=== PATIENT | female | born 1975 | race Caucasian/White ===

== ENCOUNTER 2019-12-03 10:14 | Inpatient (IN) | payer OTHER ==
[2019-12-03] MEDS ORDERED: KETOROLAC 15 MG/ML 1 ML VIAL IVP STA (10:37)
--- NOTE | 2019-12-03 10:51 | ED ---
Extremity Problem HPI - General Chief complaint: Extremity Problem,Nontraumatic Stated complaint: LEG PAIN Time Seen by Provider: 12/03/19 10:29 Source: patient, RN notes reviewed Mode of arrival: wheelchair Limitations: no limitations - History of Present Illness Initial comments: This a 44-year-old female presents emergency Department chief complaint left groin pain and swelling. 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 She states she had multiple infections of this area and which she just had her sutures removed last week and flew back here. She states she currently is seen in [place] but she flies back and forth from here. Patient states he does not have any local physician. Patient states that she noticed some increasing pain and swelling to the lymph nodes in her thigh that were biopsied. Patient states that has become more painful she has been taken Motrin no known fever. Patient called physician who recommended for the hospital infection versus blood clot. She denies any chest pain or shortness of breath. - Related Data Home Medications Medication Instructions Recorded Confirmed Gabapentin [Neurontin] 100 mg PO BID 12/03/19 12/03/19 Ibuprofen [Motrin Ib] 800 mg PO DAILY PRN 12/03/19 12/03/19 Allergies Allergy/AdvReac Type Severity Reaction Status Date / Time Penicillins Allergy Dyspnea Verified 12/03/19 10:23 Review of Systems ROS Statement: Those systems with pertinent positive or pertinent negative responses have been documented in the HPI. ROS Other: All systems not noted in ROS Statement are negative. Past Medical History Additional Past Medical History / Comment(s): Melanoma History of Any Multi-Drug Resistant Organisms: None Reported Additional Past Surgical History / Comment(s): Recent surgery to remove melanoma left calf and removal lymph nodes to left groin at [facility]. Past Psychological History: No Psychological Hx Reported Smoking Status: Current every day smoker Past Alcohol Use History: None Reported Past Drug Use History: None Reported General Exam Limitations: no limitations General appearance: alert, in no apparent distress Head exam: Present: atraumatic, normocephalic, normal inspection Eye exam: Present: normal appearance, PERRL, EOMI. Absent: scleral icterus, conjunctival injection, periorbital swelling Neck exam: Present: normal inspection. Absent: tenderness, meningismus, lymphadenopathy Respiratory exam: Present: normal lung sounds bilaterally. Absent: respiratory distress, wheezes, rales, rhonchi, stridor Cardiovascular Exam: Present: regular rate, normal rhythm, normal heart sounds. Absent: systolic murmur, diastolic murmur, rubs, gallop, clicks Extremities exam: Present: other (There is a healing wound noted on the left calf region, pulses are equal bilaterally, left groin there is a large indurated area with erythema, moderate tenderness with palpation just distal to her healed incision site neurovascular intact) Course Vital Signs 12/03/19 10:15 Temperature 97.6 F Pulse Rate 85 Respiratory 18 Rate Blood Pressure 140/87 O2 Sat by Pulse 100 Oximetry Medical Decision Making - Medical Decision Making 44-year-old female presented for left groin swelling. Ultrasound obtained no strong evidence for DVT. There there is likely an large abscess. Patient was started on broad-spectrum antibiotics patient will be admitted to medicine with consult surgery. - Lab Data Result diagrams: 12/03/19 10:54 12/03/19 10:54 Lab Results 12/03/19 12/03/19 12/03/19 Range/Units 10:54 10:54 10:54 WBC 11.2 H (3.8-10.6) k/uL RBC 4.07 (3.80-5.40) m/uL Hgb 11.9 (11.4-16.0) gm/dL Hct 36.0 (34.0-46.0) % MCV 88.4 (80.0-100.0) fL MCH 29.3 (25.0-35.0) pg MCHC 33.1 (31.0-37.0) g/dL RDW 12.4 (11.5-15.5) % Plt Count 329 (150-450) k/uL Neutrophils % 81 % Lymphocytes % 10 % Monocytes % 5 % Eosinophils % 3 % Basophils % 1 % Neutrophils # 9.1 H (1.3-7.7) k/uL Lymphocytes # 1.1 (1.0-4.8) k/uL Monocytes # 0.5 (0-1.0) k/uL Eosinophils # 0.4 (0-0.7) k/uL Basophils # 0.1 (0-0.2) k/uL PT 10.0 (9.0-12.0) sec INR 1.0 (<1.2) APTT 27.0 (22.0-30.0) sec Sodium 138 (137-145) mmol/L Potassium 3.3 L (3.5-5.1) mmol/L Chloride 102 (98-107) mmol/L Carbon Dioxide 28 (22-30) mmol/L Anion Gap 8 mmol/L BUN 8 (7-17) mg/dL Creatinine 0.62 (0.52-1.04) mg/dL Est GFR (CKD-EPI)AfAm >90 (>60 ml/min/1.73 sqM) Est GFR (CKD-EPI)NonAf >90 (>60 ml/min/1.73 sqM) Glucose 88 (74-99) mg/dL Plasma Lactic Acid U[place] (0.7-2.0) mmol/L Calcium 8.7 (8.4-10.2) mg/dL Total Bilirubin 0.9 (0.2-1.3) mg/dL AST 25 (14-36) U/L ALT 28 (4-34) U/L Alkaline Phosphatase 88 (38-126) U/L Total Protein 6.9 (6.3-8.2) g/dL Albumin 4.1 (3.5-5.0) g/dL Urine Color Urine Appearance (Clear) Urine pH (5.0-8.0) Ur Specific [place] (1.001-1.035) Urine Protein (Negative) Urine Glucose (UA) (Negative) Urine Ketones (Negative) Urine Blood (Negative) Urine Nitrite (Negative) Urine Bilirubin (Negative) Urine Urobilinogen (<2.0) mg/dL Ur Leukocyte Esterase (Negative) Urine RBC (0-5) /hpf Urine WBC (0-5) /hpf Ur Squamous Epith Cells (0-4) /hpf Urine Bacteria (None) /hpf Urine Mucus (None) /hpf 12/03/19 12/03/19 Range/Units 10:54 10:54 WBC (3.8-10.6) k/uL RBC (3.80-5.40) m/uL Hgb (11.4-16.0) gm/dL Hct (34.0-46.0) % MCV (80.0-100.0) fL MCH (25.0-35.0) pg MCHC (31.0-37.0) g/dL RDW (11.5-15.5) % Plt Count (150-450) k/uL Neutrophils % % Lymphocytes % % Monocytes % % Eosinophils % % Basophils % % Neutrophils # (1.3-7.7) k/uL Lymphocytes # (1.0-4.8) k/uL Monocytes # (0-1.0) k/uL Eosinophils # (0-0.7) k/uL Basophils # (0-0.2) k/uL PT (9.0-12.0) sec INR (<1.2) APTT (22.0-30.0) sec Sodium (137-145) mmol/L Potassium (3.5-5.1) mmol/L Chloride (98-107) mmol/L Carbon Dioxide (22-30) mmol/L Anion Gap mmol/L BUN (7-17) mg/dL Creatinine (0.52-1.04) mg/dL Est GFR (CKD-EPI)AfAm (>60 ml/min/1.73 sqM) Est GFR (CKD-EPI)NonAf (>60 ml/min/1.73 sqM) Glucose (74-99) mg/dL Plasma Lactic Acid [place] 0.9 (0.7-2.0) mmol/L Calcium (8.4-10.2) mg/dL Total Bilirubin (0.2-1.3) mg/dL AST (14-36) U/L ALT (4-34) U/L Alkaline Phosphatase (38-126) U/L Total Protein (6.3-8.2) g/dL Albumin (3.5-5.0) g/dL Urine Color Yellow Urine Appearance Cloudy H (Clear) Urine pH 6.0 (5.0-8.0) Ur Specific [place] 1.016 (1.001-1.035) Urine Protein Negative (Negative) Urine Glucose (UA) Negative (Negative) Urine Ketones Negative (Negative) Urine Blood Trace H (Negative) Urine Nitrite Negative (Negative) Urine Bilirubin Negative (Negative) Urine Urobilinogen <2.0 (<2.0) mg/dL Ur Leukocyte Esterase Large H (Negative) Urine RBC 5 (0-5) /hpf Urine WBC 108 H (0-5) /hpf Ur Squamous Epith Cells <1 (0-4) /hpf Urine Bacteria Rare H (None) /hpf Urine Mucus Rare H (None) /hpf Disposition Clinical Impression: Abscess of left groin Disposition: ADMITTED IP TO THIS HOSP Condition: Fair Referrals: None,Stated [Primary Care Provider] - 1-2 days
[2019-12-03 11:20] LABS: ALT 28 U/L (4-34); AST 25 U/L (14-36); African American GFR (CKD) >90 (>60 ml/min/1.73 sqM); Albumin 4.1 g/dL (3.5-5.0); Alkaline Phosphatase 88 U/L (38-126); Anion Gap 8 mmol/L; Blood Urea Nitrogen 8 mg/dL (7-17); Calcium 8.7 mg/dL (8.4-10.2); Carbon Dioxide 28 mmol/L (22-30); Chloride 102 mmol/L (98-107); Glucose 88 mg/dL (74-99); Non-African American GFR(CKD) >90 (>60 ml/min/1.73 sqM); Potassium 3.3 mmol/L (3.5-5.1); Sodium 138 mmol/L (137-145); Total Bilirubin 0.9 mg/dL (0.2-1.3); Total Protein 6.9 g/dL (6.3-8.2)
[2019-12-03 11:24] LABS: Appearance,Urine Cloudy (Clear); Bacteria,Urine Rare /hpf; Bilirubin,Urine Negative (Negative); Blood,Urine Trace (Negative); Color,Urine Yellow; Glucose,Urine (UA) Negative (Negative); Ketones,Urine Negative (Negative); Leukocyte Esterase,Urine Large (Negative); Mucus,Urine Rare /hpf; Nitrite,Urine Negative (Negative); Protein,Urine Negative (Negative); RBC,Urine 5 /hpf (0-5); Specific Gravity,Urine 1.016 (1.001-1.035); Squamous Epithelial Cell,Urine <1 /hpf (0-4); Urobilinogen,Urine <2.0 mg/dL (<2.0); WBC,Urine 108 /hpf (0-5)
[2019-12-03 11:34] LABS: Basophils # (A) 0.1 k/uL (0-0.2); Basophils % (A) 1 %; Eosinophils # (A) 0.4 k/uL (0-0.7); Eosinophils % (A) 3 %; HGB 11.9 gm/dL (11.4-16.0); Lymphocytes # (A) 1.1 k/uL (1.0-4.8); Lymphocytes % (A) 10 %; MCH 29.3 pg (25.0-35.0); MCHC 33.1 g/dL (31.0-37.0); MCV 88.4 fL (80.0-100.0); Mean Platelet Volume 8.5; Monocytes # (A) 0.5 k/uL (0-1.0); Monocytes % (A) 5 %; Neutrophils # (A) 9.1 k/uL (1.3-7.7); Neutrophils % (A) 81 %; Platelet Count 329 k/uL (150-450); RBC 4.07 m/uL (3.80-5.40); RDW 12.4 % (11.5-15.5); WBC 11.2 k/uL (3.8-10.6)
--- NOTE | 2019-12-03 11:50 | US ---
EXAMINATION TYPE: US groin LT DATE OF EXAM: 12/03/2019 COMPARISON: NONE CLINICAL HISTORY: infection s/p biopsy. hx lymph nodes removed on Oct 01 due to Melanoma on left leg. Redness and hard palpable in left groin. Complex fluid collection visualized at area of concern = 4.9 x 3.4 x 2.5 cm. IMPRESSION: 1. Limited ultrasound of the left groin demonstrates a large complex lesion measuring 4.9 cm. Differe ntial diagnosis would include an abscess. Hematoma or a mass not excluded. Correlate clinically.
--- NOTE | 2019-12-03 11:51 | US ---
EXAMINATION TYPE: US venous doppler duplex LE LT DATE OF EXAM: 12/03/2019 11:41 AM COMPARISON: US CLINICAL HISTORY: pain . Hard palpable and redness seen in left groin. R/O DVT. SIDE PERFORMED: Left TECHNIQUE: The lower extremity deep venous system is examined utilizing real time linear array sonog genevieve with graded compression, doppler sonography and color-flow sonography. VESSELS IMAGED: External Iliac Vein (EIV) Common Femoral Vein Deep Femoral Vein Greater Saphenous Vein * Femoral Vein Popliteal Vein Small Saphenous Vein * Proximal Calf Veins (* superficial vessels) Left Leg: Negative for DVT. Compressions deferred for Fem V proximal and mid due to patient pain to lerance and location of hard palpable. IMPRESSION: Exam limited due to lack of compressions. No diagnostic evidence of DVT as visualized.
[2019-12-03] MEDS ORDERED: VANCOMYCIN IV PER PHARMACY 1 EACH MISC MISCELLANE PRN ×2 (12:28→14:18)
[2019-12-03] MEDS ORDERED: ONDANSETRON 4 MG/2 ML VIAL IVP PRN (12:30)
[2019-12-03] MEDS ORDERED: NALOXONE 0.4 MG/ML 1 ML VIAL IV PRN (12:30)
[2019-12-03] MEDS ORDERED: KETOROLAC 15 MG/ML 1 ML VIAL IVP PRN (12:30)
[2019-12-03] MEDS ORDERED: VANCOMYCIN 1,750 MG in SODIUM CHLORIDE 0.9% 500 ML 500 ML IVPB ONE (13:00)
[2019-12-03] MEDS: SODIUM CHLORIDE 0.9% 1,000 ML IV SCH (13:06)
[2019-12-03] MEDS ORDERED: ACETAMINOPHEN TAB 325 MG TAB PO PRN (14:18)
--- NOTE | 2019-12-03 14:25 | P.HPIM ---
History of Present Illness H&P Date: 12/03/19 Chief Complaint: Left thigh redness and pain This is a 44-year-old female with past medical history significant for recently diagnosed malignant melanoma of the left lower extremity status post surgical excision [place]. Patient said that since then she had problems with the wound healing at the excision site in the left lower extremity posterior calf area. She had antibiotic that eventually had her sutures removed few days ago. She said that on Tuesday she noted an area of swelling and redness in the left groin/upper thigh area just below the lymph node biopsy incision area. This was getting more painful. She denies any fevers or chills. She did not the area of erythema on Tuesday but today noted that the redness expanded significantly and was having more pain and decided to come to the emergency room. In the ER, ultrasound showed the 5 cm fluid collection suggestive for an underlying abscess. Patient was given IV ceftriaxone and vancomycin is currently admitted to the hospital for further management. Review of Systems Review of system: 14 points review of systems were obtained and were negative except to what were mentioned in the HPI. Past Medical History Additional Past Medical History / Comment(s): Melanoma History of Any Multi-Drug Resistant Organisms: None Reported Additional Past Surgical History / Comment(s): Recent surgery to remove melanoma left calf and removal lymph nodes to left groin at [facility]. Past Psychological History: No Psychological Hx Reported Smoking Status: Current every day smoker Past Alcohol Use History: None Reported Past Drug Use History: None Reported Medications and Allergies Home Medications Medication Instructions Recorded Confirmed Type Gabapentin [Neurontin] 100 mg PO BID 12/03/19 12/03/19 History Ibuprofen [Motrin Ib] 800 mg PO DAILY PRN 12/03/19 12/03/19 History Allergies Allergy/AdvReac Type Severity Reaction Status Date / Time Penicillins Allergy Dyspnea Verified 12/03/19 10:23 Physical Exam Vitals: Vital Signs Temp Pulse Resp BP Pulse Ox 12/03/19 13:08 98.2 F 78 18 135/74 100 12/03/19 10:15 97.6 F 85 18 140/87 100 Intake and Output 12/02/19 12/03/19 12/03/19 22:59 06:59 14:59 Other: Weight 101.151 kg General: The patient is awake and alert, in no distress Eye: there is normal conjunctiva bilaterally. Neck: The neck is supple, there is no JVD. Cardiovascular: Normal S1-S2, no S3-S4, no murmurs. Respiratory: Lungs clear to auscultation bilaterally Gastrointestinal: Abdomen is soft, nontender Musculoskeletal: There is no pedal edema. Left thigh significantly swollen compared to the right. There is an area of erythema extending from the left groin down to the mid thigh area. There is an area of hardening and fluctuation measuring approximately 4 cm Neurological:. Speech is normal. Skin: Skin is warm and dry Results CBC & Chem 7: 12/03/19 10:54 12/03/19 10:54 Labs: Abnormal Lab Results - Last 24 Hours (Table) 12/03/19 12/03/19 12/03/19 Range/Units 10:54 10:54 10:54 WBC 11.2 H (3.8-10.6) k/uL Neutrophils # 9.1 H (1.3-7.7) k/uL Potassium 3.3 L (3.5-5.1) mmol/L Urine Appearance Cloudy H (Clear) Urine Blood Trace H (Negative) Ur Leukocyte Esterase Large H (Negative) Urine WBC 108 H (0-5) /hpf Urine Bacteria Rare H (None) /hpf Urine Mucus Rare H (None) /hpf Assessment and Plan Assessment: 1. Left groin/upper thigh cellulitis with abscess, we will continue with IV vancomycin. Gen. surgery consulted for I&D. Mallard for pain as needed 2. Recently diagnosed malignant melanoma on the left calf status post excision/removal, wound appeared eating well. I will consult wound care 3. Leukocytosis with no other SIRS criteria. We'll continue IV fluid hydration and antibiotic. Blood culture sent and pending. 4. DVT prophylaxis with subcu heparin The patient is admitted with an anticipated greater than 2 midnight stay for ev aluation of the medical problems noted above Discussed with: Patient and nursing staff Anticipated discharge date: To be determined based on clinical course Anticipated discharge place: home A total of 45 minutes was spent on the care of this complex patient more than 50% of the time was spent in counseling and care coordination.
[2019-12-03] MEDS ORDERED: INFLUENZA VACCINE (6 MOS+) 60 MCG/0.5 ML SYRINGE IM ONE (14:29)
[2019-12-03] MEDS: HYDROcodone/APAP 5-325MG 1 EACH TAB PO PRN (15:55)
--- NOTE | 2019-12-03 16:32 | P.OP ---
Date of Procedure: 12/03/19 Preoperative Diagnosis: Left thigh abscess Postoperative Diagnosis: Left thigh abscess Procedure(s) Performed: range of left thigh abscess Anesthesia: MIKKI Surgeon: Arnav Garcia Estimated Blood Loss (ml): 5 Pathology: other (Wound culture) Condition: stable Disposition: PACU Description of Procedure: Patient's placed on the bed in the supine position. Her left thigh was prepped and draped usual sterile fashion. The area the abscess was anesthetized with local Xylocaine. Patient had a inflamed or mass located just below the inguinal crease in the left medial thigh. After adequate anesthesia. He area is prepped and draped. Using 11 blade the skin was incised. The subcutaneous tissue divided and then using hemostat the subcutaneous tissues were spread a small amount. Fluid was seen. This was cultured. The wound was then packed with gauze. The patient tolerated the procedure well.
--- NOTE | 2019-12-03 16:33 | P.GSCN ---
History of Present Illness Consult date: 12/03/19 Reason for Consult: Left thigh abscess History of present illness: Is a 44-year-old female who has undergone recent excision of melanoma left lower extremity with sentinel node biopsy. Patient developed induration and cellulitis of her left thigh. Her ultrasound was suggestive of a possible abscess. Past Medical History Past Medical History: Cancer Additional Past Medical History / Comment(s): Melanoma History of Any Multi-Drug Resistant Organisms: None Reported Past Surgical History: Ear Surgery, Uterine Ablation Additional Past Surgical History / Comment(s): Recent surgery to remove melanoma left calf and removal lymph nodes to left groin at [facility]. Past Anesthesia/Blood Transfusion Reactions: No Reported Reaction Past Psychological History: No Psychological Hx Reported Smoking Status: Current every day smoker Past Alcohol Use History: None Reported Past Drug Use History: None Reported - Past Family History Father Family Medical History: No Reported History Additional Family Medical History / Comment(s): Father is helathy Mother Family Medical History: No Reported History Additional Family Medical History / Comment(s): Mother is healthy Medications and Allergies Home Medications Medication Instructions Recorded Confirmed Type Gabapentin [Neurontin] 100 mg PO BID 12/03/19 12/03/19 History Ibuprofen [Motrin Ib] 800 mg PO DAILY PRN 12/03/19 12/03/19 History Allergies Allergy/AdvReac Type Severity Reaction Status Date / Time Penicillins Allergy Dyspnea Verified 12/03/19 10:23 Surgical - Exam Vital Signs Temp Pulse Resp BP Pulse Ox 97.6 F 85 18 140/87 100 12/03/19 10:15 12/03/19 10:15 12/03/19 10:15 12/03/19 10:15 12/03/19 10:15 - General well developed, no distress - Eyes PERRL - ENT normal pinna - Neck no masses - Respiratory normal expansion - Cardiovascular Rhythm: regular - Abdomen Abdomen: soft, non tender - Integumentary 5 cm tender mass located just below the inguinal crease left medial thigh. There is significant cellulitis of the left thigh. Results - Labs 12/03/19 10:54 12/03/19 10:54 Abnormal Lab Results - Last 24 Hours (Table) 12/03/19 12/03/19 12/03/19 Range/Units 10:54 10:54 10:54 WBC 11.2 H (3.8-10.6) k/uL Neutrophils # 9.1 H (1.3-7.7) k/uL Potassium 3.3 L (3.5-5.1) mmol/L Urine Appearance Cloudy H (Clear) Urine Blood Trace H (Negative) Ur Leukocyte Esterase Large H (Negative) Urine WBC 108 H (0-5) /hpf Urine Bacteria Rare H (None) /hpf Urine Mucus Rare H (None) /hpf Diabetes panel 12/03/19 Range/Units 10:54 Sodium 138 (137-145) mmol/L Potassium 3.3 L (3.5-5.1) mmol/L Chloride 102 (98-107) mmol/L Carbon Dioxide 28 (22-30) mmol/L BUN 8 (7-17) mg/dL Creatinine 0.62 (0.52-1.04) mg/dL Glucose 88 (74-99) mg/dL Calcium 8.7 (8.4-10.2) mg/dL AST 25 (14-36) U/L ALT 28 (4-34) U/L Alkaline Phosphatase 88 (38-126) U/L Total Protein 6.9 (6.3-8.2) g/dL Albumin 4.1 (3.5-5.0) g/dL Calcium panel 12/03/19 Range/Units 10:54 Calcium 8.7 (8.4-10.2) mg/dL Albumin 4.1 (3.5-5.0) g/dL Pituitary panel 12/03/19 Range/Units 10:54 Sodium 138 (137-145) mmol/L Potassium 3.3 L (3.5-5.1) mmol/L Chloride 102 (98-107) mmol/L Carbon Dioxide 28 (22-30) mmol/L BUN 8 (7-17) mg/dL Creatinine 0.62 (0.52-1.04) mg/dL Glucose 88 (74-99) mg/dL Calcium 8.7 (8.4-10.2) mg/dL Adrenal panel 12/03/19 Range/Units 10:54 Sodium 138 (137-145) mmol/L Potassium 3.3 L (3.5-5.1) mmol/L Chloride 102 (98-107) mmol/L Carbon Dioxide 28 (22-30) mmol/L BUN 8 (7-17) mg/dL Creatinine 0.62 (0.52-1.04) mg/dL Glucose 88 (74-99) mg/dL Calcium 8.7 (8.4-10.2) mg/dL Total Bilirubin 0.9 (0.2-1.3) mg/dL AST 25 (14-36) U/L ALT 28 (4-34) U/L Alkaline Phosphatase 88 (38-126) U/L Total Protein 6.9 (6.3-8.2) g/dL Albumin 4.1 (3.5-5.0) g/dL - Imaging Additional studies: Ultrasound of the left thigh shows possible 5 cm abscess Assessment and Plan Assessment: Left thigh abscess. Patient will undergo incision and drainage.
[2019-12-03] MEDS ORDERED: VANCOMYCIN 1,750 MG in SODIUM CHLORIDE 0.9% 500 ML 500 ML IVPB SCH (20:00)
[2019-12-03] MEDS: GABAPENTIN 100 MG CAP PO SCH (20:04)
[2019-12-03] MEDS: HEPARIN SODIUM,PORCINE 5,000 UNIT/ML 1 ML VIAL SQ SCH (20:04)
[2019-12-03] MEDS ORDERED: FAMOTIDINE 20 MG/2 ML VIAL IV STA (22:48)
[2019-12-03] MEDS ORDERED: diphenhydrAMINE 50 MG/ML 1 ML VIAL IVP STA (22:48)
[2019-12-03] MEDS ORDERED: methylPREDNISolone SOD SUCCI 125 MG/2 ML VIAL IV STA (22:48)
--- NOTE | 2019-12-03 22:52 | P.EN ---
patient reported sudden feeling of throat itching, and itching over her back, found to have two new lumps over her base of neck and mid back, and over her coccyx, which is new, with urticaria. otherwise the rest of her skin seems to be fine, on physical exam, her oral mucus membrane is unremarkable , vital signs stable, lungs with clear breath sounds , no wheezing , no stridors. plan possible allergic reaction to drug, currently receiving first dose of vanco , patient had rocephine earlier, she has history of penicillin allergy hold vanco continue IVF give one time dose of benadryl, pepcid and steroid continue close monitoring of vital signs and her airways.
[2019-12-04] MEDS: SODIUM CHLORIDE 0.9% 1,000 ML IV SCH (00:25)
[2019-12-04 06:08] LABS: Basophils % (A) 0 %; Eosinophils # (A) 0.1 k/uL (0-0.7); Eosinophils % (A) 1 %; HCT 36.8 % (34.0-46.0); HGB 12.3 gm/dL (11.4-16.0); Lymphocytes # (A) 0.5 k/uL (1.0-4.8); Lymphocytes % (A) 5 %; MCH 30.2 pg (25.0-35.0); MCHC 33.3 g/dL (31.0-37.0); MCV 90.7 fL (80.0-100.0); Mean Platelet Volume 8.3; Monocytes # (A) 0.1 k/uL (0-1.0); Monocytes % (A) 1 %; Neutrophils # (A) 9.2 k/uL (1.3-7.7); Neutrophils % (A) 93 %; Platelet Count 313 k/uL (150-450); RBC 4.06 m/uL (3.80-5.40); WBC 9.9 k/uL (3.8-10.6)
[2019-12-04 09:27] LABS: African American GFR (CKD) 129.4 (60.0-200.0); Anion Gap 9.1 mmol/L (4.00-12.00); Carbon Dioxide 22.9 mmol/L (21.6-31.8); Non-African American GFR(CKD) 111.6 (60.0-200.0); Potassium 3.6 mmol/L (3.5-5.5)
--- NOTE | 2019-12-04 09:54 | P.PN ---
Subjective Progress Note Date: 12/04/19 Patient is doing a lot better today. Area of erythema is shrinking significantly compared to the marker. No fevers or chills overnight. Cultures are still pending. Objective - Vital Signs Vital signs: Vital Signs Temp 97.6 F 12/04/19 05:00 Pulse 82 12/04/19 05:00 Resp 18 12/04/19 05:00 BP 122/79 12/04/19 05:00 Pulse Ox 96 12/04/19 05:00 Intake & Output 12/03/19 12/04/19 12/04/19 18:59 06:59 18:59 Weight 101.151 kg Other: Voiding Method Toilet # Voids 2 - Exam General: The patient is awake and alert, in no distress Eye: there is normal conjunctiva bilaterally. Neck: The neck is supple, there is no JVD. Cardiovascular: Normal S1-S2, no S3-S4, no murmurs. Respiratory: Lungs clear to auscultation bilaterally Gastrointestinal: Abdomen is soft, nontender Musculoskeletal: There is no pedal edema. Neurological:. Speech is normal. Skin: Skin is warm and dry - Labs CBC & Chem 7: 12/04/19 05:42 12/04/19 05:42 Labs: Abnormal Lab Results - Last 24 Hours (Table) 12/03/19 12/03/19 12/03/19 Range/Units 10:54 10:54 10:54 WBC 11.2 H (3.8-10.6) k/uL Neutrophils # 9.1 H (1.3-7.7) k/uL Lymphocytes # (1.0-4.8) k/uL Potassium 3.3 L (3.5-5.1) mmol/L Glucose (70-110) mg/dL Calcium (8.7-10.3) mg/dL Urine Appearance Cloudy H (Clear) Urine Blood Trace H (Negative) Ur Leukocyte Esterase Large H (Negative) Urine WBC 108 H (0-5) /hpf Urine Bacteria Rare H (None) /hpf Urine Mucus Rare H (None) /hpf 12/04/19 12/04/19 Range/Units 05:42 05:42 WBC (3.8-10.6) k/uL Neutrophils # 9.2 H (1.3-7.7) k/uL Lymphocytes # 0.5 L (1.0-4.8) k/uL Potassium (3.5-5.1) mmol/L Glucose 142 H (70-110) mg/dL Calcium 8.0 L (8.7-10.3) mg/dL Urine Appearance (Clear) Urine Blood (Negative) Ur Leukocyte Esterase (Negative) Urine WBC (0-5) /hpf Urine Bacteria (None) /hpf Urine Mucus (None) /hpf Microbiology - Last 24 Hours (Table) 12/03/19 17:46 Gram Stain - Preliminary Leg - Left Wound Culture - Preliminary 12/03/19 16:20 Anaerobic Culture - Preliminary Leg - Left 12/03/19 10:54 Urine Culture - Preliminary Urine,Voided Assessment and Plan Assessment: This is a 44-year-old female with past medical history noted below presented to the emergency room with worsening redness and pain involving her left upper thigh and left groin area. Patient was evaluated in the ER and admitted to the hospital for further management of her medical problems noted below. 1. Left groin/upper thigh cellulitis with abscess, status post I&D by general surgery. Minimal amount of fluid drained. Sent for cultures. Started on IV antibiotic with vancomycin but developed an ALLERGIC reaction to switch her antibiotic to IV clindamycin. Infectious disease consulted. 2. Recently diagnosed malignant melanoma on the left calf status post excision/removal, wound appeared eating well. Wound care consulted for further recommendations 3. Leukocytosis with no other SIRS criteria. Resolved. Blood culture sent and pending. 4. DVT prophylaxis with subcu heparin Today, I reviewed her medication list and lab work results. Discontinue IV fluids. Continue IV antibiotics otherwise. Anticipate discharge home within the next day or 2 when cultures finalize.
[2019-12-04] MEDS: CLINDAMYCIN 600 MG in DEXTROSE 5% IN WATER 50 ML IVPB SCH ×4 (10:38→11:55)
[2019-12-04] MEDS: GABAPENTIN 100 MG CAP PO SCH ×2 (10:38→21:31)
[2019-12-04] MEDS: HEPARIN SODIUM,PORCINE 5,000 UNIT/ML 1 ML VIAL SQ SCH ×2 (10:38→21:31)
[2019-12-04 11:21] VITALS: BMI 32.0
--- NOTE | 2019-12-04 11:39 | P.CONS ---
History of Present Illness - Reason for Consult Consult date: 12/04/19 Wound care - History of Present Illness This is a 44-year-old patient being seen on for nonhealing ulceration to the left posterior leg. Patient states that the ulceration has been there since melanoma was removed back in September. At that time patient had multiple sutures in place and was applying a wet to dry dressing. The sutures were removed on October 01 resulting in a dehisced incision site. Patient continued with wet-to-dry dressing for approximate 4 weeks and has been moved to [facility] to the site. Patient sees her obstetrics technician in [place] where she previously lived. Patient was flying to [place] on multiple occasions. Resulting in multiple skin infections to the site. She has no history significant for melanoma. Patient is everyday one pack a day smoker. Review of Systems Review Of Systems: Constitutional: No fever, no chills, no night sweats. No weight change. No weakness, fatigue or lethargy. No daytime sleepiness. Integumentary:reports wounds, no lesions. No rash or pruritus. No unusual bruising. No change in hair or nails. Past Medical History Past Medical History: Cancer Additional Past Medical History / Comment(s): Melanoma History of Any Multi-Drug Resistant Organisms: None Reported Past Surgical History: Ear Surgery, Uterine Ablation Additional Past Surgical History / Comment(s): Recent surgery to remove melanoma left calf and removal lymph nodes to left groin at [facility]. Past Anesthesia/Blood Transfusion Reactions: No Reported Reaction Past Psychological History: No Psychological Hx Reported Smoking Status: Current every day smoker Past Alcohol Use History: None Reported Past Drug Use History: None Reported - Past Family History Father Family Medical History: No Reported History Additional Family Medical History / Comment(s): Father is helathy Mother Family Medical History: No Reported History Additional Family Medical History / Comment(s): Mother is healthy Medications and Allergies Home Medications Medication Instructions Recorded Confirmed Type Gabapentin [Neurontin] 100 mg PO BID 12/03/19 12/03/19 History Ibuprofen [Motrin Ib] 800 mg PO DAILY PRN 12/03/19 12/03/19 History Allergies Allergy/AdvReac Type Severity Reaction Status Date / Time Penicillins Allergy Dyspnea Verified 12/03/19 10:23 Physical Exam Vitals: Vital Signs Temp Pulse Pulse Pulse Resp BP BP 12/04/19 05:00 97.6 F 82 18 12/03/19 22:35 88 18 127/77 12/03/19 20:10 98.2 F 80 16 12/03/19 14:20 98.1 F 79 18 144/80 12/03/19 13:08 98.2 F 78 18 135/74 BP Pulse Ox 12/04/19 05:00 122/79 96 12/03/19 22:35 100 12/03/19 20:10 119/72 99 12/03/19 14:20 99 12/03/19 13:08 100 Intake and Output 12/03/19 12/04/19 12/04/19 22:59 06:59 14:59 Other: Voiding Method Toilet # Voids 1 2 Weight 101.151 kg Physical exam: General Appearance: Alert, cooperative, no distress, appears stated age. Skin: Left posterior lower extremity has a full-thickness ulceration etiology of melanoma and surgical dehiscence. Ulceration has fat layer exposure with moderate slough noted within the wound bed. Wound edges attached to the wound base. Measuring approximately 8 x 1.5 x 0.3 cm. Periwound shows scarring and callus. all other Skin color, texture, tugor normal, no rashes or lesions. Neurologic: Alert oriented x3 Results CBC & Chem 7: 12/04/19 05:42 12/04/19 05:42 Labs: Abnormal Lab Results - Last 24 Hours (Table) 12/03/19 12/03/19 12/04/19 Range/Units 10:54 10:54 05:42 WBC 11.2 H (3.8-10.6) k/uL Neutrophils # 9.1 H 9.2 H (1.3-7.7) k/uL Lymphocytes # 0.5 L (1.0-4.8) k/uL Glucose (70-110) mg/dL Calcium (8.7-10.3) mg/dL Urine Appearance Cloudy H (Clear) Urine Blood Trace H (Negative) Ur Leukocyte Esterase Large H (Negative) Urine WBC 108 H (0-5) /hpf Urine Bacteria Rare H (None) /hpf Urine Mucus Rare H (None) /hpf 12/04/19 Range/Units 05:42 WBC (3.8-10.6) k/uL Neutrophils # (1.3-7.7) k/uL Lymphocytes # (1.0-4.8) k/uL Glucose 142 H (70-110) mg/dL Calcium 8.0 L (8.7-10.3) mg/dL Urine Appearance (Clear) Urine Blood (Negative) Ur Leukocyte Esterase (Negative) Urine WBC (0-5) /hpf Urine Bacteria (None) /hpf Urine Mucus (None) /hpf Microbiology - Last 24 Hours (Table) 12/03/19 17:46 Gram Stain - Preliminary Leg - Left Wound Culture - Preliminary 12/03/19 16:20 Anaerobic Culture - Preliminary Leg - Left 12/03/19 10:54 Urine Culture - Preliminary Urine,Voided Assessment and Plan (1) Nonhealing ulcer of left lower extremity with fat layer exposed Current Visit: Yes Status: Acute Code(s): L97.922 - NON-PRS CHR ULC UNSP PRT OF L LOW LEG W FAT LAYER EXPOSED SNOMED Code(s): 82310762 (2) Nicotine dependence with current use Current Visit: Yes Status: Acute Code(s): F17.200 - NICOTINE DEPENDENCE, UNSPECIFIED, UNCOMPLICATED SNOMED Code(s): 333816348 (3) Surgical wound dehiscence Current Visit: Yes Status: Acute Code(s): T81.31XA - DISRUPTION OF EXTERNAL OPERATION (SURGICAL) WOUND, NEC, INIT SNOMED Code(s): 69460834 Plan: Apply collagen silver, saline moistened gauze, foam, rolled gauze secured with paper tape. Utilize it Cezar wrap to help control swelling. Continue to elevate legs at least 3 times a day for 30 minutes. Patient may shower. Discussed with patient utilizing outpatient wound care to help with healing patient verbalizes understanding and will think about it. Thank you kindly for the consultation any questions please contact the wound care center DNP note has been reviewed and discussed with Dr. Christine and the impression and plan of care has been directed as dictated. Time with Patient: Greater than 30 (Discussed in length proper care for the wound and benefits of the wound care center including dressing changes and debridement.)
--- NOTE | 2019-12-04 12:08 | P.PN ---
Subjective Progress Note Date: 12/04/19 CHIEF COMPLAINT: Left thigh abscess HISTORY OF PRESENT ILLNESS: Patient seen and examined with Dr. Garcia. Status post incision and drainage of left thigh abscess. Patient appears to have had an ALLERGIC reaction to antibiotics yesterday. Unclear if it's the Rocephin or vancomycin. Medicine is discontinued both patient was given Solu-Medrol, Benadryl and Pepcid. Rash is improving. She is currently on clindamycin. Afebrile. White count 9.9 PHYSICAL EXAM: VITAL SIGNS: Reviewed. GENERAL: Well-developed in no acute distress. HEENT: No sclera icterus. Extraocular movements grossly intact. Moist buccal mucosa. Head is atraumatic, normocephalic. ABDOMEN: Soft. Nondistended. Nontender. NEUROLOGIC: Alert and oriented. Cranial nerves II through XII grossly intact. Extremities: Left thigh erythema has decreased. Dressing is clean dry and intact ASSESSMENT: 1. Left thigh abscess status post incision and drainage PLAN: -Follow up on culture results from thigh abscess -Continue antibiotics -Consult infectious disease for further antibiotic recommendations Physician Irradiated Fuel Handler note has been reviewed by physician. Signing provider agrees with the documented findings, assessment, and plan of care. Objective - Vital Signs Vital signs: Vital Signs Temp 97.6 F 12/04/19 05:00 Pulse 82 12/04/19 05:00 Resp 18 12/04/19 05:00 BP 122/79 12/04/19 05:00 Pulse Ox 96 12/04/19 05:00 Intake & Output 12/03/19 12/04/19 12/04/19 18:59 06:59 18:59 Weight 101.151 kg 101.151 kg Other: Voiding Method Toilet # Voids 2 - Labs CBC & Chem 7: 12/04/19 05:42 12/04/19 05:42 Labs: Abnormal Lab Results - Last 24 Hours (Table) 12/04/19 12/04/19 Range/Units 05:42 05:42 Neutrophils # 9.2 H (1.3-7.7) k/uL Lymphocytes # 0.5 L (1.0-4.8) k/uL Glucose 142 H (70-110) mg/dL Calcium 8.0 L (8.7-10.3) mg/dL Microbiology - Last 24 Hours (Table) 12/03/19 17:46 Gram Stain - Preliminary Leg - Left Wound Culture - Preliminary 12/03/19 16:20 Anaerobic Culture - Preliminary Leg - Left 12/03/19 10:54 Urine Culture - Preliminary Urine,Voided
[2019-12-04] MEDS: HYDROcodone/APAP 5-325MG 1 EACH TAB PO PRN (14:29)
[2019-12-04] MEDS: DAPTOmycin 500 MG in SODIUM CHLORIDE 0.9% 50 ML IVPB SCH (17:33)
--- NOTE | 2019-12-04 23:59 | P.CONS ---
History of Present Illness - Reason for Consult Consult date: 12/04/19 Left groin abscess Requesting physician: Carlos Crowder - Chief Complaint Left groin pain swelling redness x few days - History of Present Illness Patient is a 44-year-old female with a past medical history significant for melanoma resection from the left lower leg in September with the surgery performed in [place] , patient mentioned she did have multiple infection to the area post surgery and the stitches were removed about a week ago after the stitches removed patient no wound to the left leg open up and the patient started having pain and swelling to the left groin area that has gradually increased in severity patient describing the pain to be more of a throbbing intensity almost understand and no radiation, with the symptoms the patient presented to hospital on arrival to the patient has been afebrile patient did have mildly elevated white count of 11.2 patient did have ultrasound of the left groin with did shows a complex fluid collection subsequently the patient has been evaluated by general surgery and treat have a drainage of the left thigh abscess that has been obtained for cultures which are currently pending patient was started on vancomycin however the patient has developed significant rash to it which was discontinued antibiotics was switched over to clindamycin and infectious disease was consulted today for further management of antibiotic therapy Review of Systems Positive point has been mentioned in the HPI rest of the systems are negative Past Medical History Past Medical History: Cancer Additional Past Medical History / Comment(s): Melanoma History of Any Multi-Drug Resistant Organisms: None Reported Past Surgical History: Ear Surgery, Uterine Ablation Additional Past Surgical History / Comment(s): Recent surgery to remove melanoma left calf and removal lymph nodes to left groin at [facility]. Past Anesthesia/Blood Transfusion Reactions: No Reported Reaction Past Psychological History: No Psychological Hx Reported Smoking Status: Current every day smoker Past Alcohol Use History: None Reported Past Drug Use History: None Reported - Past Family History Father Family Medical History: No Reported History Additional Family Medical History / Comment(s): Father is helathy Mother Family Medical History: No Reported History Additional Family Medical History / Comment(s): Mother is healthy Medications and Allergies Home Medications Medication Instructions Recorded Confirmed Type Gabapentin [Neurontin] 100 mg PO BID 12/03/19 12/03/19 History Ibuprofen [Motrin Ib] 800 mg PO DAILY PRN 12/03/19 12/03/19 History Allergies Allergy/AdvReac Type Severity Reaction Status Date / Time Penicillins Allergy Dyspnea Verified 12/03/19 10:23 Physical Exam Vitals: Vital Signs Temp Pulse Resp BP BP Pulse Ox 12/04/19 11:25 98 F 77 18 128/79 97 12/04/19 05:00 97.6 F 82 18 122/79 96 12/03/19 22:35 88 18 127/77 100 12/03/19 20:10 98.2 F 80 16 119/72 99 Intake and Output 12/04/19 12/04/19 12/04/19 06:59 14:59 22:59 Intake Total 50 Balance 50 Intake: Intake, IV Titration 50 Amount Clindamycin 600 mg In 50 Dextrose 5% in Water 50 ml @ 50 mls/hr IVPB Q6HR [facility] Rx#:[id number] Other: Voiding Method Toilet # Voids 2 Weight 101.151 kg GENERAL DESCRIPTION: Middle-aged female lying in bed, no distress. No tachypnea or accessory muscle of respiration use. HEENT: Shows Pallor , no scleral icterus. Oral mucous membrane is dry. No pharyngeal erythema or thrush NECK: Trachea central, no thyromegaly. LUNGS: Unlabored breathing. Clear to auscultation anteriorly. No wheeze or crackle. HEART: S1, S2, regular rate and rhythm. No loud murmur ABDOMEN: Soft, no tenderness , guarding or rigidity, no organomegaly EXTREMITIES: Left upper thigh and groin area did have swelling and redness is slightly tender to touch, left lower leg wound base looks clean with no slough tissue or surrounding redness SKIN: No rash, no masses palpable. NEUROLOGICAL: The patient is awake, alert, oriented x3, mood and affect normal. Results CBC & Chem 7: 12/04/19 05:42 12/04/19 05:42 Labs: Abnormal Lab Results - Last 24 Hours (Table) 12/04/19 12/04/19 Range/Units 05:42 05:42 Neutrophils # 9.2 H (1.3-7.7) k/uL Lymphocytes # 0.5 L (1.0-4.8) k/uL Glucose 142 H (70-110) mg/dL Calcium 8.0 L (8.7-10.3) mg/dL Microbiology - Last 24 Hours (Table) 12/03/19 13:11 Blood Culture - Preliminary Blood No Growth after 24 hours 12/03/19 17:46 Gram Stain - Preliminary Leg - Left Wound Culture - Preliminary 12/03/19 16:20 Anaerobic Culture - Preliminary Leg - Left 12/03/19 10:54 Urine Culture - Preliminary Urine,Voided Assessment and Plan Assessment: 1- patient with left groin area abscess in this patient who did have a history of left leg nonhealing wound post resection of melanoma, status post drainage subsequently developing a rash to the vancomycin 2-patient with a penicillin ALLERGY that would limit the number of antibiotic safety use (1) Allergy to multiple antibiotics Current Visit: Yes Status: Acute Code(s): Z88.1 - ALLERGY STATUS TO OTHER ANTIBIOTIC AGENTS STATUS SNOMED Code(s): 821024463 (2) Abscess of left groin Current Visit: Yes Status: Acute Code(s): L02.214 - CUTANEOUS ABSCESS OF GROIN SNOMED Code(s): 98701829 Plan: 1- discontinue clindamycin 2-start the patient on daptomycin 500 mg every day 3-local wound care per the wound care team We will follow on clinical condition and cultures to further adjust medication if needed Thank you for this consultation will follow this patient with you Time with Patient: Greater than 30
[2019-12-05 05:08] LABS: Basophils % (A) 0 %; Eosinophils # (A) 0.1 k/uL (0-0.7); Eosinophils % (A) 2 %; HCT 31.2 % (34.0-46.0); HGB 10.5 gm/dL (11.4-16.0); Lymphocytes # (A) 2.1 k/uL (1.0-4.8); Lymphocytes % (A) 22 %; MCH 30.2 pg (25.0-35.0); MCHC 33.6 g/dL (31.0-37.0); MCV 89.8 fL (80.0-100.0); Monocytes # (A) 0.4 k/uL (0-1.0); Monocytes % (A) 4 %; Neutrophils # (A) 6.9 k/uL (1.3-7.7); Neutrophils % (A) 71 %; Platelet Count 294 k/uL (150-450); RBC 3.47 m/uL (3.80-5.40); RDW 12.5 % (11.5-15.5); WBC 9.7 k/uL (3.8-10.6)
[2019-12-05 09:36] LABS: African American GFR (CKD) 129.4 (60.0-200.0); Anion Gap 10.7 mmol/L (4.00-12.00); Calcium 8.1 mg/dL (8.7-10.3); Carbon Dioxide 24.3 mmol/L (21.6-31.8); Non-African American GFR(CKD) 111.6 (60.0-200.0); Potassium 3.5 mmol/L (3.5-5.5)
[2019-12-05] MEDS: GABAPENTIN 100 MG CAP PO SCH ×2 (10:09→20:57)
[2019-12-05] MEDS: HEPARIN SODIUM,PORCINE 5,000 UNIT/ML 1 ML VIAL SQ SCH ×2 (10:09→20:56)
--- NOTE | 2019-12-05 11:08 | P.PN ---
Subjective Progress Note Date: 12/05/19 CHIEF COMPLAINT: Left thigh abscess HISTORY OF PRESENT ILLNESS: Patient seen and examined with Dr. Garcia. Status post incision and drainage of left thigh abscess. Patient reports removing the packing from her wound during her shower yesterday. It caused her a lot of pain. And she refused to have packing reinserted. She was seen by infectious disease she had a possible ALLERGIC reaction to vancomycin. Infectious disease has now placed her on daptomycin. She is afebrile. White count 9.7. Her cultures from the abscess are negative so far. PHYSICAL EXAM: VITAL SIGNS: Reviewed. GENERAL: Well-developed in no acute distress. HEENT: No sclera icterus. Extraocular movements grossly intact. Moist buccal mucosa. Head is atraumatic, normocephalic. ABDOMEN: Soft. Nondistended. Nontender. NEUROLOGIC: Alert and oriented. Cranial nerves II through XII grossly intact. Extremities: Left thigh erythema resolved. Dressing has a small area of saturation at the top of the dressing ASSESSMENT: 1. Left thigh abscess status post incision and drainage PLAN: -Follow up on culture results from thigh abscess -Continue antibiotics per ID Physician Diamond Assorter note has been reviewed by physician. Signing provider agrees with the documented findings, assessment, and plan of care. Objective - Vital Signs Vital signs: Vital Signs Temp 98.2 F 12/05/19 05:00 Pulse 70 12/05/19 05:00 Resp 17 12/05/19 05:00 BP 103/68 12/05/19 05:00 Pulse Ox 98 12/05/19 05:00 Intake & Output 12/04/19 12/05/19 12/05/19 18:59 06:59 18:59 Intake Total 50 200 Balance 50 200 Weight 101.151 kg Intake: Intake, IV Titration 50 Amount Clindamycin 600 mg In 50 Dextrose 5% in Water 50 ml @ 50 mls/hr IVPB Q6HR [facility] Rx#:[id number] Oral 200 Other: Voiding Method Toilet Toilet Toilet # Voids 1 - Labs CBC & Chem 7: 12/05/19 04:58 12/05/19 04:58 Labs: Abnormal Lab Results - Last 24 Hours (Table) 12/05/19 12/05/19 Range/Units 04:58 04:58 RBC 3.47 L (3.80-5.40) m/uL Hgb 10.5 L (11.4-16.0) gm/dL Hct 31.2 L (34.0-46.0) % BUN/Creatinine Ratio 25.00 H (12.00-20.00) Ratio Calcium 8.1 L (8.7-10.3) mg/dL Microbiology - Last 24 Hours (Table) 12/03/19 10:54 Urine Culture - Preliminary Urine,Voided Gram Neg Bacilli 12/03/19 17:46 Gram Stain - Preliminary Leg - Left Wound Culture - Preliminary 12/03/19 13:11 Blood Culture - Preliminary Blood No Growth after 24 hours
[2019-12-05] MEDS: HYDROcodone/APAP 5-325MG 1 EACH TAB PO PRN ×2 (12:38→20:57)
--- NOTE | 2019-12-05 16:35 | P.PN ---
Subjective Progress Note Date: 12/05/19 Patient is doing well today. Area of erythema is shrinking significantly compared to the marker. No fevers or chills overnight. Cultures are still pending. Objective - Vital Signs Vital signs: Vital Signs Temp 97.9 F 12/05/19 12:31 Pulse 82 12/05/19 15:58 Resp 18 12/05/19 15:58 BP 138/87 12/05/19 12:31 Pulse Ox 97 12/05/19 12:31 Intake & Output 12/04/19 12/05/19 12/05/19 18:59 06:59 18:59 Intake Total 50 200 650 Balance 50 200 650 Weight 101.151 kg Intake: Intake, IV Titration 50 50 Amount Clindamycin 600 mg In 50 Dextrose 5% in Water 50 ml @ 50 mls/hr IVPB Q6HR [facility] Rx#:[id number] DAPTOmycin 500 mg In 50 Sodium Chloride 0.9% 50 ml @ 100 mls/hr IVPB Q24H [facility] Rx#:[id number] Oral 200 600 Other: Voiding Method Toilet Toilet Toilet # Voids 1 1 - Exam General: The patient is awake and alert, in no distress Eye: there is normal conjunctiva bilaterally. Neck: The neck is supple, there is no JVD. Cardiovascular: Normal S1-S2, no S3-S4, no murmurs. Respiratory: Lungs clear to auscultation bilaterally Gastrointestinal: Abdomen is soft, nontender Musculoskeletal: There is no pedal edema. Neurological:. Speech is normal. Skin: Skin is warm and dry - Labs CBC & Chem 7: 12/05/19 04:58 12/05/19 04:58 Labs: Abnormal Lab Results - Last 24 Hours (Table) 12/05/19 12/05/19 Range/Units 04:58 04:58 RBC 3.47 L (3.80-5.40) m/uL Hgb 10.5 L (11.4-16.0) gm/dL Hct 31.2 L (34.0-46.0) % BUN/Creatinine Ratio 25.00 H (12.00-20.00) Ratio Calcium 8.1 L (8.7-10.3) mg/dL Microbiology - Last 24 Hours (Table) 12/03/19 13:11 Blood Culture - Preliminary Blood No Growth after 48 hours 12/03/19 10:54 Urine Culture - Preliminary Urine,Voided Gram Neg Bacilli 12/03/19 17:46 Gram Stain - Preliminary Leg - Left Wound Culture - Preliminary Assessment and Plan Assessment: This is a 44-year-old female with past medical history noted below presented to the emergency room with worsening redness and pain involving her left upper thigh and left groin area. Patient was evaluated in the ER and admitted to the hospital for further management of her medical problems noted below. 1. Left groin/upper thigh cellulitis with abscess, status post I&D by general surgery. Minimal amount of fluid drained. Sent for cultures. Started on IV antibiotic with vancomycin but developed an ALLERGIC reaction. Infectious disease consulted and currently on IV daptomycin 2. Recently diagnosed malignant melanoma on the left calf status post exc ision/removal, wound appeared healing well. Wound care consulted for further recommendations 3. Leukocytosis with no other SIRS criteria. Resolved. Blood culture negative to date 4. DVT prophylaxis with subcu heparin Today, I reviewed her medication list and lab work results. Continue IV an tibiotics. I would discuss with infectious disease discharge antibiotic regimen. Anticipate discharge home tomorrow.
[2019-12-05] MEDS: DAPTOmycin 500 MG in SODIUM CHLORIDE 0.9% 50 ML IVPB SCH (17:07)
[2019-12-05] MEDS: NITROFURANTOIN MONOHYD/M-CRYST 100 MG CAP PO SCH (21:20)
--- NOTE | 2019-12-06 00:05 | PN ---
PROGRESS NOTE DATE OF SERVICE: 12/05/2019 REASON FOR FOLLOWUP: Left upper thigh abscess and UTI. INTERVAL HISTORY: The patient is currently afebrile. The patient is breathing comfortably. The patient denies having any chest pain or shortness of breath or cough. No nausea, no vomiting. No abdominal pain or any worsening of pain to the left thigh. PHYSICAL EXAMINATION: Blood pressure 130/78 with a pulse of 71, temperature 98. She is 97% on room air. General description is a middle-aged female lying in bed in no distress. RESPIRATORY SYSTEM: Unlabored breathing, clear to auscultation anteriorly. HEART: S1, S2. Regular rate and rhythm. ABDOMEN: Soft, no tenderness. Left upper thigh area swelling and redness has decreased. LABS: Hemoglobin is 10.5, white count 9.7, BUN of 15, creatinine 0.6. DIAGNOSTIC IMPRESSION AND PLAN: 1. Patient with left upper thigh abscess, status post drainage. Cultures currently pending. The patient is currently on daptomycin. Discharge antibiotic on the basis of culture report. 2. Patient with Escherichia coli urinary tract infection with positive urine culture. Macrobid has been added to continue and see clinical response. MMODL / IJN: [id number] /
[2019-12-06] MEDS: GABAPENTIN 100 MG CAP PO SCH (08:15)
[2019-12-06] MEDS: HEPARIN SODIUM,PORCINE 5,000 UNIT/ML 1 ML VIAL SQ SCH (08:15)
[2019-12-06] MEDS: NITROFURANTOIN MONOHYD/M-CRYST 100 MG CAP PO SCH (08:16)
[2019-12-06 09:56] LABS: African American GFR (CKD) 129.4 (60.0-200.0); Anion Gap 7.5 mmol/L (4.00-12.00); BUN/Creat Ratio 31.67 Ratio (12.00-20.00); Calcium 7.9 mg/dL (8.7-10.3); Carbon Dioxide 25.5 mmol/L (21.6-31.8); Non-African American GFR(CKD) 111.6 (60.0-200.0); Potassium 3.7 mmol/L (3.5-5.5)
[2019-12-06 12:25] VITALS: BP 137/84; PULSE 64; RESP 17; TEMP 97.4
--- NOTE | 2019-12-06 13:30 | P.DS ---
Providers Date of admission: 12/03/19 12:30 Expected date of discharge: 12/06/19 Attending physician: Carlos Crowder Consults: 12/03/19 12:31 Consult Physician Urgent Consulting Provider: Arnav Garcia Consult Reason/Comments: abscess, left groin Do you want consulting provider notified?: Yes 12/04/19 08:09 Consult Physician Routine Consulting Provider: Teena Contreras Consult Reason/Comments: THIGH ABSCESS Do you want consulting provider notified?: Yes Primary care physician: Stated None Hospital Course: This is a 44-year-old female with past medical history noted below presented to the emergency room with worsening redness and pain involving her left upper thigh and left groin area. Patient was evaluated in the ER and admitted to the hospital for further management of her medical problems noted below. 1. Left groin/upper thigh cellulitis with abscess, status post I&D by general surgery. Minimal amount of fluid drained. Sent for cultures negative so far. Started on IV antibiotic with vancomycin but developed an ALLERGIC reaction. Infectious disease consulted and currently on IV daptomycin. Patient will be discharged to finish antibiotic course with Keflex per infectious disease recommendations. 2. Recently diagnosed malignant melanoma on the left calf status post excision/removal, wound appeared healing well. Wound care consulted for further recommendations, appreciate recommendations. 3. Leukocytosis with no other SIRS criteria. Resolved. Blood culture negative to date 4. Uncomplicated UTI with urine culture growing pansensitive susceptible E. coli, covered with Keflex Patient will be discharged home in a stable condition. For further details about this hospitalization please refer to the electronic chart. Time spent on discharge > 30 minutes including counseling and coordination of Patient Condition at Discharge: Stable Plan - Discharge Summary Discharge Rx Participant: No New Discharge Prescriptions: New Cephalexin [Keflex] 500 mg PO Q6HR 10 Days #40 cap Continue Ibuprofen [Motrin Ib] 800 mg PO DAILY PRN PRN Reason: Fever And/ Or Pain Gabapentin [Neurontin] 100 mg PO BID Discharge Medication List Gabapentin [Neurontin] 100 mg PO BID 12/03/19 [History] Ibuprofen [Motrin Ib] 800 mg PO DAILY PRN 12/03/19 [History] Cephalexin [Keflex] 500 mg PO Q6HR 10 Days #40 cap 12/06/19 [Rx] Follow up Appointment(s)/Referral(s): None,Stated [Primary Care Provider] - 1-2 days Activity/Diet/Wound Care/Special Instructions: nafisaoney to the left leg wound , than moist dressing daily call [phone] to make an appointment to see dr conterras in wound care next week Discharge Disposition: HOME SELF-CARE
--- NOTE | 2019-12-06 13:51 | P.PN ---
Subjective Progress Note Date: 12/06/19 CHIEF COMPLAINT: Left thigh abscess HISTORY OF PRESENT ILLNESS: Patient seen and examined with Dr. Gibbons. Status post incision and drainage of left thigh abscess. Patient is showing improvement. She's afebrile. She is tolerating regular diet. Wound cultures are negative so far. Antibiotics per ID PHYSICAL EXAM: VITAL SIGNS: Reviewed. GENERAL: Well-developed in no acute distress. HEENT: No sclera icterus. Extraocular movements grossly intact. Moist buccal mucosa. Head is atraumatic, normocephalic. ABDOMEN: Soft. Nondistended. Nontender. NEUROLOGIC: Alert and oriented. Cranial nerves II through XII grossly intact. Extremities: Left thigh erythema resolved. ASSESSMENT: 1. Left thigh abscess status post incision and drainage PLAN: -Discharge antibiotics per ID -Continue local wound care -Patient is surgically stable for discharge -Patient follow-up with Dr. gibbons in 1 week Physician Cafe Assistant note has been reviewed by physician. Signing provider agrees with the documented findings, assessment, and plan of care. Objective - Vital Signs Vital signs: Vital Signs Temp 97.4 F L 12/06/19 12:25 Pulse 64 12/06/19 12:25 Resp 17 12/06/19 12:25 BP 137/84 12/06/19 12:25 Pulse Ox 99 12/06/19 12:25 Intake & Output 12/05/19 12/06/19 12/06/19 18:59 06:59 18:59 Intake Total 650 200 Balance 650 200 Intake: Intake, IV Titration 50 Amount DAPTOmycin 500 mg In 50 Sodium Chloride 0.9% 50 ml @ 100 mls/hr IVPB Q24H [facility] Rx#:[id number] Oral 600 200 Other: Voiding Method Toilet Toilet Toilet # Voids 1 1 # Bowel Movements 1 - Labs CBC & Chem 7: 12/05/19 04:58 12/06/19 05:32 Labs: Abnormal Lab Results - Last 24 Hours (Table) 12/06/19 Range/Units 05:32 BUN/Creatinine Ratio 31.67 H (12.00-20.00) Ratio Calcium 7.9 L (8.7-10.3) mg/dL Microbiology - Last 24 Hours (Table) 12/03/19 16:20 Anaerobic Culture - Preliminary Leg - Left 12/03/19 17:46 Gram Stain - Final Leg - Left Wound Culture - Final 12/03/19 10:54 Urine Culture - Final Urine,Voided Escherichia coli 12/03/19 13:11 Blood Culture - Preliminary Blood No Growth after 48 hours
--- NOTE | 2019-12-06 14:34 | PN ---
PROGRESS NOTE DATE OF SERVICE: 12/06/2019 REASON FOR FOLLOWUP: Left thigh abscess and cellulitis, left leg wound. INTERVAL HISTORY: Patient is currently afebrile. Patient is feeling better. Breathing comfortably. The patient denies having any chest pain, no shortness of breath, no cough, no nausea, no abdominal pain. Left thigh swelling has much improved. PHYSICAL EXAMINATION: Blood pressure 137/85, pulse of 54, temperature 97.4. She is 99% on room air. General description is a middle-aged female, lying in bed in no distress. RESPIRATORY SYSTEM: Unlabored breathing, clear to auscultation anteriorly. HEART: S1, S2. Regular rate and rhythm. The left thigh swelling, redness and induration have decreased. Left leg wound size about the same. Some blister around the wound, but no redness, no drainage. LABS: BUN of 9, creatinine 0.60. The abscess culture has been negative. DIAGNOSTIC IMPRESSION AND PLAN: 1. Patient with left thigh abscess, status post drainage. Culture has been negative for resistant pathogen. The patient did have PENICILLIN allergy; however, she tolerated dose of cefazolin. Has a prescription for oral Keflex 500 mg p.o. q.6 hours for 10 days. Local care with Hydrofera Blue packing of the wound. 2. Left leg wound. Local care with Candice. Follow up [facility] next week. Questions and concerns were answered. MMSTONEL / MARTHAN: [id number] /
== END 2019-12-06 15:39 | disposition home or self-care (01) | DRG 857 ==
LOC: EC 10:14 → 6NMEDSUR 12:30
PROVIDERS: ADMIT Internal Medicine; ATTEND Internal Medicine
PROC: 0J9M0ZZ Drainage of Left Upper Leg Subcutaneous Tissue and Fascia, Open Approach (ICD-10-PCS; principal; 2019-12-03)
DX: T81.41XA Infection following a procedure, superficial incisional surgical site, initial encounter (principal); L03.116 Cellulitis of left lower limb; L02.416 Cutaneous abscess of left lower limb; N39.0 Urinary tract infection, site not specified; F17.210 Nicotine dependence, cigarettes, uncomplicated; T36.95XA Adverse effect of unspecified systemic antibiotic, initial encounter; B96.20 Unspecified Escherichia coli [E. coli] as the cause of diseases classified elsewhere; Z79.899 Other long term (current) drug therapy; Z88.0 Allergy status to penicillin; Z85.820 Personal history of malignant melanoma of skin; Z98.890 Other specified postprocedural states
CPT/HCPCS: 36415; 80048; 80053; 81001; 83605; 85025; 85610; 85730; 87040; 87070; 87075; 87077; 87086; 87186; 87205; 96365; 96375; 99284

== ENCOUNTER → 2022-05-26 | Outpatient (CLI) | payer BC ==
--- NOTE | 2022-05-26 09:32 | MR ---
EXAMINATION TYPE: MR brain wo con DATE OF EXAM: 05/26/2022 8:53 AM COMPARISON: None. CLINICAL INDICATION:Female, 46 years old with history of G43.909 MIGRAINE; Dizziness, headaches, me ama loss, hx of melanoma TECHNIQUE: Multi planar, multi sequence imaging was performed through the brain including: T1, T2, In version recovery, Diffusion weighted imaging, and gradient echo imaging. No gadolinium was given. FINDINGS: Mild asymmetric dilation of the right lateral ventricle compared to left. The caro-white junctions, and cisterns appear unremarkable. Midline structures show no abnormality. D iffusion-weighted imaging shows no evidence of restricted diffusion. The susceptibility weighted imag es do not reveal any evidence for micro-hemorrhage. The bone marrow signal is within normal limits. Paranasal sinuses and mastoid air cells: Mucosal thickening of the maxillary sinuses ethmoid air cell s. There is high T2 signal within the mastoid air cells. Visualized orbits: Orbital contents are intact. IMPRESSION: 1. No evidence of intracranial mass or acute/subacute infarct. 2. Mild paranasal sinus disease predominantly involving the maxillary sinuses and ethmoid air cells. Additional trace bilateral mastoid effusions.
== END | disposition home or self-care (01) ==
LOC: RADMRIMAIN 08:18
PROVIDERS: ATTEND Physician Assistant Medical
DX: J32.8 Other chronic sinusitis (principal); G43.909 Migraine, unspecified, not intractable, without status migrainosus
CPT/HCPCS: 70551

== ENCOUNTER → 2023-06-07 | Outpatient (CLI) | payer BC ==
--- NOTE | 2023-06-08 14:56 | MM ---
Reason for Exam: Screening (asymptomatic). Last mammogram was performed 1 year(s) and 1 month(s) ago. Patient History: Menarche at age 15. First Full-Term at age 24. Last menstrual period: 08/31/2010 Risk Values: Aisha 5 year model risk: 0.7%. NCI Lifetime model risk: 7.8%. Prior Study Comparison: 05/25/2022 Bilateral Screening Mammogram, [facility]. Tissue Density: There are scattered areas of fibroglandular density. Findings: Analyzed By CAD. There is no suspicious group of microcalcifications or new suspicious mass in either breast. Overall Assessment: Negative, BI-RAD 1 Management: Screening Mammogram of both breasts in 1 year. . Patient should continue monthly self-breast exams. A clinical breast exam by your physician is recommended on an annual basis. This exam should not preclude additional follow-up of suspicious palpable abnormalities. Note on Aisha scores and lifetime risk: 1. A Aisha score greater than 3% is considered moderate risk. If this is the case, consider specialist referral to assess eligibility for a risk reducing agent. 2. If overall lifetime risk for the development of breast cancer is 20% or higher, the patient may qualify for future screening with alternating mammogram and breast MRI. Electronically signed and approved by: Iván Lema M.D. Radiologis
== END | disposition home or self-care (01) ==
LOC: RADMAMWWP 06:49
PROVIDERS: ATTEND Family Medicine
DX: Z12.31 Encounter for screening mammogram for malignant neoplasm of breast (principal)
CPT/HCPCS: 77063; 77067

== ENCOUNTER → 2023-06-22 | Outpatient (CLI) | payer BC ==
--- NOTE | 2023-06-22 16:25 | US ---
EXAMINATION TYPE: US venous doppler duplex LE LT DATE OF EXAM: 06/22/2023 4:11 PM COMPARISON: NONE CLINICAL INDICATION: Female, 47 years old with history of R22.42 LOCALIZED SWELLING, MASS AND LUMP, L EFT LOW; Hx melanoma removed lt posterior calf 2019, now cald post and medial calf pain after long pa in trip SIDE PERFORMED: Left TECHNIQUE: The lower extremity deep venous system is examined utilizing real time linear array sonog genevieve with graded compression, doppler sonography and color-flow sonography. VESSELS IMAGED: Common Femoral Vein Deep Femoral Vein Greater Saphenous Vein * Femoral Vein Popliteal Vein Small Saphenous Vein * Proximal Calf Veins (* superficial vessels) Left Leg: Negative for DVT IMPRESSION: 1. Left lower extremity ultrasound negative for deep venous thrombosis. 2. No suspicious soft tissue abnormality within the [id number]
== END | disposition home or self-care (01) ==
LOC: RADUSWWP 15:40
PROVIDERS: ATTEND Family Medicine
DX: R22.42 Localized swelling, mass and lump, left lower limb (principal); M79.662 Pain in left lower leg; Z85.820 Personal history of malignant melanoma of skin

== ENCOUNTER → 2023-09-30 | Outpatient (CLI) | payer BC ==
--- NOTE | 2023-09-30 13:01 | CT ---
EXAMINATION TYPE: CT chest wo con CT DLP: 536 mGycm, Automated exposure control for dose reduction was used. DATE OF EXAM: 09/30/2023 9:09 AM COMPARISON: None available CLINICAL INDICATION:Female, 47 years old with history of R91.1 SOLITARY PULMONARY NODULE; [facility], f/u on pulmonary nodule x 4 years. TECHNIQUE: Multiple axial images were obtained through the chest without IV contrast. Lack of IV or o ral contrast limits evaluation of solid and hollow organ viscera. . Coronal and sagittal reformats re viewed. FINDINGS: LUNGS/ PLEURA: No pleural effusion, pneumothorax, or focal consolidation. A few patchy reticular grou ndglass opacities identified within the bilateral lower lobes. Pleural base left lower lobe superior segment 6.7 mm pulmonary nodule (series 4, 28). Right lower lobe 6.5 mm calcified granuloma (series 4 , image 42). Additional left upper lobe 2.5 mm pulmonary nodule (series 4, image 16) and left upper l obe 2.5 cm pulmonary nodule (series 4, image 27). AIRWAY: Patent and unremarkable.. HEART: Size within normal limits. No pericardial effusion. MEDIASTINUM: No gross evidence of adenopathy. Few punctate right hilar calcified lymph nodes VASCULATURE: No aortic aneurysm. MUSCULOSKELETAL: No acute osseous abnormalities SOFT TISSUES/LYMPH NODES: Unremarkable. LOWER NECK: No significant findings. UPPER ABDOMEN: Few calcified punctate granulomas within the spleen. IMPRESSION: 1. Right lower lobe pleural-based 6.7 mm pulmonary nodule with additional 2 left upper lobe pulmonary micronodules. Correlation with prior imaging is recommended to assess for interval change. Otherwise follow up CT chest in 6-12 months is recommended to assess for stability. 2. Sequelae of prior granulomatous disease.
== END | disposition home or self-care (01) ==
LOC: RADCTMAIN 08:48
PROVIDERS: ATTEND Family Medicine
DX: R91.8 Other nonspecific abnormal finding of lung field (principal)
CPT/HCPCS: 71250

== ENCOUNTER → 2024-07-17 | Outpatient (CLI) | payer BC ==
--- NOTE | 2024-07-17 08:02 | MM ---
Reason for Exam: Screening (asymptomatic). Last mammogram was performed 1 year(s) and 1 month(s) ago. Patient History: Menarche at age 15. First Full-Term at age 24. Patient used Hormonal Contraceptives for 1 year. Risk Values: Aisha 5 year model risk: 0.7%. NCI Lifetime model risk: 7.7%. Prior Study Comparison: 05/25/2022 Bilateral Screening Mammogram, [facility]. 06/07/2023 Bilateral MG 3D screening mammo w/cad, [facility]. Tissue Density: There are scattered areas of fibroglandular density. Findings: Analyzed By CAD. Right breast: There is no suspicious group of microcalcifications or new suspicious mass. Left breast: There is no suspicious group of microcalcifications or new suspicious mass. Overall Assessment: Negative, BI-RAD 1 Management: Screening Mammogram of both breasts in [address] [facility] will attempt to contact patient to return for supplemental views and ultrasound if indicated. Patient should continue monthly self-breast exams. A clinical breast exam by your physician is recommended on an annual basis. This exam should not preclude additional follow-up of suspicious palpable abnormalities. Note on Aisha scores and lifetime risk: 1. A Aisha score greater than 3% is considered moderate risk. If this is the case, consider specialist referral to assess eligibility for a risk reducing agent. 2. If overall lifetime risk for the development of breast cancer is 20% or higher, the patient may qualify for future screening with alternating mammogram and breast MRI. [facility], , 07/17/2024 7:59 AM. Electronically signed and approved by: Greg Ledezma DO
== END | disposition home or self-care (01) ==
LOC: RADMAMWWP 07:44
PROVIDERS: ATTEND Family Medicine
DX: Z12.31 Encounter for screening mammogram for malignant neoplasm of breast (principal); R92.323 Mammographic fibroglandular density, bilateral breasts; Z92.0 Personal history of contraception
CPT/HCPCS: 77063; 77067